=== PATIENT | male | born 1970 | race Two or more races ===

== ENCOUNTER 2018-09-06 16:39 | Emergency (ER) | payer SELFPAY ==
[~2018-09-06] VITALS: Ht 177.8 cm; Wt 95.3 kg
[2018-09-06 16:52] VITALS: BP 164/92
[2018-09-06] MEDS ORDERED: LIDOCAINE 2%/EPI 1:100,000 20 ML VIAL. IJ ONE (17:00)
[2018-09-06] MEDS ORDERED: NEOMY/BACITR/POLYMYXIN OINT PACKET. TP ONE (17:00)
--- NOTE | 2018-09-06 17:15 | PHYS DOC ---
Past Medical History Past Medical History: Hypertension Past Surgical History: No Surgical History Additional Information: nonsmoker Alcohol Use: None Drug Use: None Adult General Chief Complaint Chief Complaint: LACERATION/AVULSION HPI HPI Patient is a 48-year-old male that is presenting to the ED with a laceration to the back of the left index finger. He reports that he was stripping a wire with his pocket knife and it jumped on him and cut into his finger. He denies any sensory or motor loss. He reports that he got a tetanus shot 6 months ago. He denies using blood thinners. He ranks his pain as a 4 out of 10. Review of Systems Review of Systems Respiratory: Denies cough or shortness of breath [] Cardiovascular: Denies chest pain or palpitations [] GI: Denies abdominal pain, nausea, vomiting, or diarrhea [] Musculoskeletal: Denies back pain, reports left first metacarpophalangeal joint pain [] Integument: Denies rash or skin lesions [] Neurologic: Denies headache, focal weakness or sensory changes [] Complete systems were reviewed and found to be within normal limits, except as documented in this note. Current Medications Current Medications Current Medications Medications (Trade) Dose Ordered Sig/Katie Start Time Stop Time Status Last Admin Dose Admin Lidocaine/ Epinephrine (LIDOCAINE 2%-EPI 1:100,000 multi-dose) 20 ml 1X ONCE 09/06/18 17:00 09/06/18 17:01 DC 09/06/18 16:57 20 ML Neomycin/ Polymyxin/ Bacitracin (Triple Antibiotic Ointment) 1 pkt 1X ONCE 09/06/18 17:00 09/06/18 17:01 DC 09/06/18 16:58 1 PKT Allergies Allergies Allergies Coded Allergies Type Severity Reaction Last Updated Verified No Known Drug Allergies 09/06/18 No Physical Exam Physical Exam Constitutional: Well developed, well nourished, no acute distress, non-toxic appearance. [] HENT: Normocephalic, atraumatic, nose normal. [] Eyes: Conjunctiva normal, no discharge. [] Neck: Normal range of motion, no tenderness, supple. [] Cardiovascular: Heart rate regular rhythm, no murmur [] Lungs & Thorax: Bilateral breath sounds clear to auscultation [] Abdomen: Soft, no tenderness. [] Skin: Warm, dry, no erythema, no rash. [] Extremities: No tenderness, no edema, 4cm superficial laceration along the posterior aspect of the first metacarpal including the MCP, full motor and sensory innervation, laceration did not involve the joint, ROM decreased. [] Neurologic: Alert and oriented X 3, no focal deficits noted. [] Psychologic: Affect normal, judgement normal, mood normal. [] Current Patient Data Vital Signs Vital Signs Date Time Temp Pulse Resp B/P (MAP) Pulse Ox O2 Delivery O2 Flow Rate FiO2 09/06/18 16:52 98.3 61 20 164/92 (116) 98 Room Air 98.3 EKG EKG [] Radiology/Procedures Radiology/Procedures [] Course & Med Decision Making Course & Med Decision Making Patient is a 48 YO M that is presenting with a 4cm laceration along the posterior aspect of the first MCP. Tetanus shot was up to date. Laceration did not involve the joint. Laceration was irrigated, closed with 7 sutures, and dressed. Patient was advised to leave the dressing for 24 hours, avoid soaking the wound, and that he would need to follow-up with his PCP in a week to have the sutures removed. Patient stable for discharge with outpatient follow-up with PCP. Discussed findings and plan with patient and family, who acknowledge understanding and agreement. Dragon Disclaimer Dragon Disclaimer This electronic medical record was generated, in whole or in part, using a voice recognition dictation system. Laceration/Wound Repair Laceration/Wound Repair : Wound Location: upper extremity (posterior aspect of the left first metacarpal and MCP) Wound's Depth, Shape: superficial Wound Explored: contaminated (no foreign bodies removed) Irrigated w/ Saline (ccs): 250 Betadine Prep?: No (chlorhexidine) Anesthesia: Lidocaine w/ Epi Volume Anesthetic (ccs): 8 Wound Debrided: minimal Wound Repaired With: sutures Suture Size/Type: 4:0, nylon Number of Sutures: 7 Layer Closure?: No Sterile Dressing Applied?: Yes Splint Applied?: No Sling Applied?: No Progress Verbal consent obtained. Timeout performed. 7 4-0 Nylon sutures were used with adequate closure. Distal end of laceration was superficial, one suture was attempted but it pulled through, the edges are well approximated. Clean dressing and antibiotic ointment was applied. Patient tolerated procedure well. Departure Departure Impression: Primary Impression: Hand laceration Disposition: HOME, SELF-CARE Condition: STABLE Referrals: NO PCP (PCP) Patient Instructions: Laceration Care, Adult, [id number] Additional Instructions: Do not soak your wound. You may shower. Clean wound daily with soap and water. Change dressing 2 times daily. Use over the counter antibiotic ointment with each dressing change. Use [id number] ibuprofen or Tylenol for pain. Sutures need to be removed in 7-10 days. Present to your family doctor or local urgent care for removal. You may also present to the ED but it will be an additional visit/charge. After suture removal you may use Vitamin E ointment to soften the wound and prevent scarring. Problem Qualifiers Primary Impression: Hand laceration Encounter type: initial encounter Foreign body presence: without foreign body Laterality: left Qualified Codes: S61.412A - Laceration without foreign body of left hand, initial encounter MEREDITH RUDD DO Sep 06, 2018 17:15
== END 2018-09-06 17:49 | disposition home or self-care (01) ==
LOC: ER 16:39
DX: S61.211A Laceration without foreign body of left index finger without damage to nail, initial encounter (principal); I10 Essential (primary) hypertension; W26.0XXA Contact with knife, initial encounter; Y93.89 Activity, other specified; Y92.89 Other specified places as the place of occurrence of the external cause; Y99.8 Other external cause status
CPT/HCPCS: 12002; 99283; J3490; 99284